=== PATIENT | female | born 1985 | race African-American/Black ===

== ENCOUNTER → 2021-02-09 11:25 | Outpatient (CLI) | payer OTHER, MEDICAID, SELFPAY ==
[2021-02-09 20:43] LABS: COVID19 - ORCAS (NP or Nasal) POSITIVE (Negative)
== END ==
PROVIDERS: PCP Family Medicine; Visit Provider Family Medicine
DX: U07.1 COVID-19 (principal)
CPT/HCPCS: U0003

== ENCOUNTER 2022-01-29 18:50 | Emergency (ER) | payer OTHER, MEDICAID, SELFPAY ==
[2022-01-29 19:00] VITALS: BP 177/102; PULSE 81; RESP 18; TEMP 36.7; O2SAT 99; BMI 31.8
--- NOTE | 2022-01-29 19:19 | DI.US.S_ITS ---
PROCEDURE: US PELVIC COMPLETE INDICATIONS: Dysfunctional uterine bleeding TECHNIQUE: Real-time scanning was performed of the pelvic organs, with image documentation. Additional endovaginal scanning was necessary due to incomplete visualization of the adnexal and endometrial structures by transabdominal scanning. COMPARISON: None. FINDINGS: Uterus: Uterus is anteverted and measures 10.8 x 6.4 x 8.1 cm. The endometrium is thickened, measuring up to 2.3 cm and slightly heterogeneous in appearance. No internal vascularity within the endometrium on color Doppler interrogation. Ovaries: The right ovary measures 3.4 x 2.2 x 2.2 cm. The left ovary measures 3.7 x 3.0 x 4.0 cm. The ovaries have a normal sonographic appearance. Less than 12 follicles can be seen in each ovary. No adnexal masses identified. There is a simple anechoic cyst within the left ovary measuring up to 3.3 x 2.5 x 3.0 cm. There is a prominent anechoic follicle within the right ovary measuring up to 1.4 cm. Other: No pathologic free abdominal or pelvic fluid. IMPRESSION: 1. Thickening of the endometrium with mild heterogeneity. No discrete endometrial mass or increased vascularity on color Doppler interrogation. The findings are nonspecific and may reflect endometrial hyperplasia. However, an underlying mass cannot be excluded. Recommend a repeat study in 6 weeks or further evaluation with a pelvic MRI. We strive to produce accurate, complete, and clear reports of imaging services. To assist us in improving patient care, this report was composed using standard report templates and voice recognition software. Therefore, it may contain abnormal punctuation, insertions and/or omissions. Occasional wrong-word or sound-alike substitutions may occur. Though we review the report and make efforts to correct it, we do recommend that the report be read carefully in proper context to recognize any text inaccuracies. Dictated by: Dylon Rogers M.D. on 01/29/2022 at 21:48 Approved by: Dylon Rogers M.D. on 01/29/2022 at 21:53
--- NOTE | 2022-01-29 19:25 | ED.ABDPAIN ---
HPI - Abdominal Pain General Chief Complaint: Vaginal Bleeding Stated Complaint: vag bleeding for 3 weeks with clots Time Seen by Provider: 01/29/22 19:07 Source: patient Mode of arrival: Ambulatory History of Present Illness HPI narrative: The patient complains of vaginal bleeding for about 3 weeks. Bleeding is rather persistent. She has no pain. She has no headache, no weakness and no dizziness. She has diagnosed with a fibroid about 3 years ago. She has shortness full cycles. She now feels like she is on a constant menstrual cycle. She can occasionally produce a large clot by pressing on her suprapubic area. She is not having abdominal pain. She denies dysuria or hematuria. She has no nausea, vomiting diarrhea. She has no fever or chills. She has no bleeding disorder. Review of Systems Constitutional Constitutional: Denies chills, Denies fatigue, Denies fever(s) and Denies weakness ENT Ears, Nose, Mouth, and Throat: Denies vertigo and Denies dizziness Comments: No ENT complaints. Cardiovascular Cardiovascular: Denies chest pain, Denies syncope, Denies lightheadedness and Denies dyspnea Respiratory Respiratory: Denies dyspnea Gastrointestinal Gastrointestinal: Denies abdominal pain, Denies loose stools, Denies nausea and Denies vomiting Genitourinary Genitourinary: Reports as per HPI, Denies dysuria, Denies dysmenorrhea and Denies dysuria Musculoskeletal Musculoskeletal: Denies back pain Integumentary/Breasts Skin/Breast: Denies new lesions and Denies rash Neurologic Neurologic: Denies confusion, Denies vertigo, Denies dizziness, Denies syncope and Denies weakness Psychiatric Psychiatric: Denies confusion Endocrine Endocrine: Denies fatigue Hematologic/Lymphatic On Anticoagulants: No Patient History Medical History (Updated 01/29/22 @ 21:42 by Douglas Leone MD) Fibroid uterus Surgical History (Updated 01/29/22 @ 19:30 by Douglas Leone MD) No significant past surgical history Social History Smoking Status: Never smoker Smoking Status: Never smoker alcohol intake frequency: 0-2 drinks per day Substance Use Type: does not use Exam Initial Vital Signs Initial Vital Signs: Vital Signs Temperature 98.1 F 01/29/22 19:00 Pulse Rate 81 01/29/22 19:00 Respiratory Rate 18 01/29/22 19:00 Blood Pressure 177/102 H 01/29/22 19:00 Pulse Oximetry 99 01/29/22 19:00 Const General: cooperative, healthy appearing and comfortable [facility] Head: normocephalic and atraumatic Eyes Conjunctivae: conjunctivae normal Sclera: sclerae normal Pupils: PERRL EOM: EOM intact bilaterally Resp Effort & Inspection: normal respiratory effort Auscultation: clear to auscultation bilaterally Cardio Rate: regular rate Rhythm: regular rhythm Heart Sounds: S1 normal, S2 normal, no click and no murmurs GI Palpation: soft, No guarding, No mass and No tender Auscultation: normal bowel sounds Back/Spine/Pelvis Back: No CVA tenderness Skin General: no rashes or lesions noted Neuro General: patient alert, patient awake, patient oriented x3 and no focal motor deficits Extrem General: normal to inspection, no pedal edema and no calf tenderness Psych Appearance: grossly normal Course Orders Ordered: ED Orders 01/29/22 19:19 US pelvic complete Stat 01/29/22 19:25 Test Urine Stat Urinalysis and Microscopic Stat 01/29/22 19:27 Urine Culture Stat 01/29/22 19:42 CBC Auto Diff [Complete Blood Count AUTO DIFF] Stat CMP [Comprehensive Metabolic Panel] Stat Prothrombin Time INR Stat Vital Signs Vital signs: Vital Signs - 8 hr 01/29/22 19:00 01/29/22 20:30 01/29/22 21:23 Temperature 98.1 F Pulse Rate 81 65 74 Respiratory Rate 18 Blood Pressure 177/102 H 152/86 H Pulse Oximetry 99 100 100 01/29/22 21:24 01/29/22 21:27 01/29/22 21:30 Temperature Pulse Rate 72 82 74 Respiratory Rate Blood Pressure 184/103 H 160/88 H Pulse Oximetry 100 100 100 MDM - Abdominal Pain Lab Data Result diagrams: 01/29/22 19:42 01/29/22 19:42 Labs: Lab Results 01/29/22 01/29/22 01/29/22 Range/Units 19:25 19:25 19:27 WBC (4.5-11.0) X10^3/uL RBC (4.0-5.2) X10^6/uL Hgb (12.0-16.0) g/dL Hct (36-46) % MCV (80-100) fL MCH (26-34) PG MCHC (30-36) % RDW (11.6-14.8) % Plt Count (150-400) X10^3/uL Neut % (Auto) (50-75) % Lymph % (Auto) (25-40) % Tucker % (Auto) (3-14) % Eos % (Auto) (2-4) % Baso % (Auto) (0-2) % Neut # (Auto) (2646-1131) /uL Lymph # (Auto) (2179-0832) /uL Tucker # (Auto) (0-900) /uL Eos # (Auto) (0-450) /uL Baso # (Auto) (0-100) /uL PT (10.1-12.7) SECONDS INR (0.9-1.3) Sodium (137-145) mmol/L Potassium (3.4-5.1) mmol/L Chloride (98-107) mmol/L Carbon Dioxide (22-32) mmol/L BUN (7-17) mg/dL Creatinine (0.52-1.04) mg/dL Estimated GFR (>60) mL/min BUN/Creatinine Ratio (6-22) Glucose (70-100) mg/dL Calcium (8.4-10.2) mg/dL Total Bilirubin (0.2-1.3) mg/dL AST (14-36) IU/L ALT (<35) IU/L Alkaline Phosphatase (38-126) U/L Total Protein (6.3-8.2) g/dL Albumin (3.5-5.0) g/dL Globulin (1.7-4.1) g/dL Albumin/Globulin Ratio (1.0-2.8) Urine Color Yellow Urine Appearance Clear Urine pH 5.5 (4.5-8.0) Ur Specific [place] 1.015 (1.000-1.035) Urine Protein 2+ H (Negative) Urine Glucose (UA) Negative (Negative) g/dL Urine Ketones Negative (NEGATIVE) Urine Occult Blood 3+ H (Negative) Urine Nitrate Negative (Negative) Urine Bilirubin Negative (NEGATIVE) Urine Urobilinogen 0.2 (0.2) E.U./dL Ur Leukocyte Esterase Negative (NEGATIVE) Urine RBC >100/hpf H Cancelled (0-5/HPF) Urine WBC None seen Cancelled (0-5/HPF) Ur Squamous Epith Cells None seen Cancelled (0-5/HPF) Ur Transition Epith Cell Cancelled Ur Renal Epithelial Cell Cancelled Calcium Oxalate Crystal Cancelled Uric Acid Crystals Cancelled Triple Phos Crystals Cancelled Other Crystals Cancelled Amorphous Sediment Cancelled Urine Bacteria None seen Cancelled (None) Hyaline Casts Cancelled Granular Casts Cancelled RBC Casts Cancelled WBC Casts Cancelled Other Casts Cancelled Urine Mucus Cancelled Urine Trichomonas Cancelled Urine Yeast Cancelled Urine Sperm Cancelled Ur Culture Indicated? Cult not indicated Cancelled Micro UA Comment Cancelled Urine Test Negative (Negative) 01/29/22 01/29/22 01/29/22 Range/Units 19:42 19:42 19:42 WBC 9.0 (4.5-11.0) X10^3/uL RBC 4.53 (4.0-5.2) X10^6/uL Hgb 11.3 L (12.0-16.0) g/dL Hct 34.8 L (36-46) % MCV 76.9 L (80-100) fL MCH 24.9 L (26-34) PG MCHC 32.4 (30-36) % RDW 16.3 H (11.6-14.8) % Plt Count 221 (150-400) X10^3/uL Neut % (Auto) 57.6 (50-75) % Lymph % (Auto) 32.2 (25-40) % Tucker % (Auto) 8.0 (3-14) % Eos % (Auto) 1.8 L (2-4) % Baso % (Auto) 0.4 (0-2) % Neut # (Auto) 5200 (4913-4045) /uL Lymph # (Auto) 2900 (0040-6906) /uL Tucker # (Auto) 700 (0-900) /uL Eos # (Auto) 200 (0-450) /uL Baso # (Auto) 0 (0-100) /uL PT 12.6 (10.1-12.7) SECONDS INR 1.1 (0.9-1.3) Sodium 137 (137-145) mmol/L Potassium 3.4 (3.4-5.1) mmol/L Chloride 103 (98-107) mmol/L Carbon Dioxide 31 (22-32) mmol/L BUN 5 L (7-17) mg/dL Creatinine 0.57 (0.52-1.04) mg/dL Estimated GFR > 60 (>60) mL/min BUN/Creatinine Ratio 8.8 (6-22) Glucose 86 (70-100) mg/dL Calcium 8.7 (8.4-10.2) mg/dL Total Bilirubin 0.2 (0.2-1.3) mg/dL AST 27 (14-36) IU/L ALT 21 (<35) IU/L Alkaline Phosphatase 70 (38-126) U/L Total Protein 7.9 (6.3-8.2) g/dL Albumin 4.3 (3.5-5.0) g/dL Globulin 3.6 (1.7-4.1) g/dL Albumin/Globulin Ratio 1.2 (1.0-2.8) Urine Color Urine Appearance Urine pH (4.5-8.0) Ur Specific [place] (1.000-1.035) Urine Protein (Negative) Urine Glucose (UA) (Negative) g/dL Urine Ketones (NEGATIVE) Urine Occult Blood (Negative) Urine Nitrate (Negative) Urine Bilirubin (NEGATIVE) Urine Urobilinogen (0.2) E.U./dL Ur Leukocyte Esterase (NEGATIVE) Urine RBC (0-5/HPF) Urine WBC (0-5/HPF) Ur Squamous Epith Cells (0-5/HPF) Ur Transition Epith Cell Ur Renal Epithelial Cell Calcium Oxalate Crystal Uric Acid Crystals Triple Phos Crystals Other Crystals Amorphous Sediment Urine Bacteria (None) Hyaline Casts Granular Casts RBC Casts WBC Casts Other Casts Urine Mucus Urine Trichomonas Urine Yeast Urine Sperm Ur Culture Indicated? Micro UA Comment Urine Test (Negative) Point of care testing: Point of Care Testing Test Results Negative Urine Dip Bedside Urine Glucose Negative Bedside Urine Bilirubin - Negative Bedside Urine Ketone - Negative Urine Specific [place] 1.025 Bedside Urine Occult Blood ++ Bedside Urine pH 6.0 Bedside Urine Protein + 30 Bedside Urine Urobilinogen - Negative Bedside Urine Nitrite - Negative Bedside Urine Leukocytes + 70 Esterase Imaging Data Pelvic ultrasound:: Radiologist's Impression: ?Thickening of the endometrium with mild heterogeneity.? No discrete endometrial mass or increased vascularity on color Doppler interrogation.? The findings are nonspecific and may reflect endometrial hyperplasia.? However, an underlying mass cannot be excluded. Discharge Plan Departure Patient Disposition: Home Clinical Impression: DUB (dysfunctional uterine bleeding) Instructions: DI for Menorrhagia Activity Restrictions/Additional Instructions: There is an abnormal thickening to the lining of your uterus, this is the reason your bleeding so much. I have discussed the case with REYMUNDO De Santiago with the local OB department. They will call you tomorrow to arrange follow-up. Return here as needed. Referrals: Aurora De Santiago CNM [[employer]] -
[2022-01-29 19:58] LABS: Appearance Urine UA CLEAR; Bilirubin Urine UA NEGATIVE (NEGATIVE); Color Urine UA YELLOW; Glucose Urine UA NEGATIVE (Negative); Ketones Urine UA NEGATIVE (NEGATIVE); Leukocyte Esterase Urine UA NEGATIVE (NEGATIVE); Nitrite Urine UA NEGATIVE (Negative); Occult Blood Urine UA 3+ (Negative); Protein Urine UA 2+ (Negative); Specific Gravity Urine UA 1.015 (1.000-1.035); Urobilinogen Urine UA 0.2 E.U./dL (0.2)
[2022-01-29 20:02] LABS: Add Manual Diff / Slide Review NO; Basophils Absolute Auto 0 /uL (0-100); Basophils Percent Auto 0.4 % (0-2); Eosinophils Absolute Auto 200 /uL (0-450); Eosinophils Percent Auto 1.8 % (2-4); Hematocrit 34.8 % (36-46); Hemoglobin 11.3 g/dL (12.0-16.0); Lymphocytes Absolute Auto 2900 /uL (1100-4500); Lymphocytes Percent Auto 32.2 % (25-40); Mean Corpuscular HGB Conc 32.4 % (30-36); Mean Corpuscular Hemoglobin 24.9 PG (26-34); Mean Corpuscular Volume 76.9 fL (80-100); Monocytes Absolute Auto 700 /uL (0-900); Neutrophils Absolute Auto 5200 /uL (1500-7000); Neutrophils Percent Auto 57.6 % (50-75); Platelet Count 221 X10^3/uL (150-400); Red Blood Cell Count 4.53 X10^6/uL (4.0-5.2); Red Cell Distribution Width 16.3 % (11.6-14.8)
[2022-01-29 20:02] LABS: Pregnancy Test Urine Negative (Negative); pH Urine UA 5.5 (4.5-8.0)
[2022-01-29 20:03] LABS: Bacteria Urine None Seen; Culture Indicated Urine Cult Not Indicated; RBC Urine >100/HPF (0-5/HPF); Squamous Epithelial Cell Urine None Seen (0-5/HPF); WBC Urine None Seen (0-5/HPF)
[2022-01-29 20:14] LABS: INR 1.1 (0.9-1.3); Prothrombin Time 12.6 SECONDS (10.1-12.7)
[2022-01-29 20:19] LABS: Alanine Aminotransferase 21 IU/L (<35); Albumin 4.3 g/dL (3.5-5.0); Albumin Globulin Ratio 1.2 (1.0-2.8); Alkaline Phosphatase 70 U/L (38-126); Aspartate Aminotransferase 27 IU/L (14-36); BUN Creatinine Ratio 8.8 (6-22); Bilirubin Total 0.2 mg/dL (0.2-1.3); Blood Urea Nitrogen 5 mg/dL (7-17); Calcium 8.7 mg/dL (8.4-10.2); Carbon Dioxide 31 mmol/L (22-32); Chloride 103 mmol/L (98-107); Estimated Glomerular Filt Rate > 60 mL/min (>60); Globulin 3.6 g/dL (1.7-4.1); Glucose 86 mg/dL (70-100); HEMOLYSIS < 15 (0-50); Potassium 3.4 mmol/L (3.4-5.1); Sodium 137 mmol/L (137-145); Total Protein 7.9 g/dL (6.3-8.2)
[2022-01-29 20:30] VITALS: BP 152/86; PULSE 65; O2SAT 100
[2022-01-29 21:23] VITALS: PULSE 74; O2SAT 100
[2022-01-29 21:24] VITALS: BP 184/103; PULSE 72; O2SAT 100
[2022-01-29 21:27] VITALS: BP 160/88; PULSE 82; O2SAT 100
[2022-01-29 21:30] VITALS: PULSE 74; O2SAT 100
== END 2022-01-29 22:04 | disposition home or self-care (01) ==
PROVIDERS: Emergency Provider Emergency Medicine
DX: N93.8 Other specified abnormal uterine and vaginal bleeding (principal)
CPT/HCPCS: 76830; 76856; 80053; 81001; 81003; 81025; 85025; 85610; 87086; 99282; 99283

== ENCOUNTER → 2024-07-16 11:07 | Outpatient (CLI) | payer OTHER, MEDICAID, SELFPAY ==
[2024-07-16 20:09] LABS: BUN Creatinine Ratio 15.4 (6-22); Blood Urea Nitrogen 10 mg/dL (7-17); Carbon Dioxide 27 mmol/L (22-32); Chloride 102 mmol/L (98-107); Estimated Glomerular Filt Rate > 60 mL/min (>60); Glucose 97 mg/dL (70-100); HEMOLYSIS < 15 (0-50); Potassium 3.8 mmol/L (3.4-5.1); Sodium 135 mmol/L (137-145)
[2024-07-16 20:41] LABS: TSH w/ Reflex to FT4 0.77 uIU/mL (0.47-4.68)
[2024-07-16 20:54] LABS: Add Manual Diff / Slide Review NO; Basophils Absolute Auto 0 /uL (0-100); Basophils Percent Auto 0.6 % (0-2); Eosinophils Absolute Auto 100 /uL (0-450); Eosinophils Percent Auto 1.4 % (2-4); Hematocrit 29.2 % (36-46); Hemoglobin 9.6 g/dL (12.0-16.0); Lymphocytes Absolute Auto 1600 /uL (1100-4500); Lymphocytes Percent Auto 30.1 % (25-40); Mean Corpuscular HGB Conc 32.7 % (30-36); Mean Corpuscular Hemoglobin 23.7 PG (26-34); Mean Corpuscular Volume 72.4 fL (80-100); Monocytes Absolute Auto 500 /uL (0-900); Monocytes Percent Auto 8.5 % (3-14); Neutrophils Absolute Auto 3200 /uL (1500-7000); Neutrophils Percent Auto 59.4 % (50-75); Platelet Count 264 X10^3/uL (150-400); Red Blood Cell Count 4.04 X10^6/uL (4.0-5.2); Red Cell Distribution Width 21.8 % (11.6-14.8); White Blood Cell Count 5.4 X10^3/uL (4.5-11.0)
[2024-07-16 22:40] LABS: Anisocytosis 1+; Target Cells 1+
[2024-07-19 20:07] LABS: Pregnancy Test Serum,Qual Negative (Negative)
== END ==
PROVIDERS: Referring Provider Family Medicine; Visit Provider Family Medicine
DX: D64.9 Anemia, unspecified (principal); R10.9 Unspecified abdominal pain; N92.0 Excessive and frequent menstruation with regular cycle; N92.1 Excessive and frequent menstruation with irregular cycle
CPT/HCPCS: 80048; 84443; 84703; 85018; 85025

== ENCOUNTER → 2024-07-22 13:17 | Outpatient (CLI) | payer OTHER, MEDICAID, SELFPAY ==
[2024-07-22 20:31] LABS: Prolactin 4.3 ng/mL (3.0-18.6)
[2024-07-22 20:45] LABS: TSH w/ Reflex to FT4 0.62 uIU/mL (0.47-4.68)
[2024-08-04 00:16] LABS: Anti Mullerian Hormone <0.015 ng/mL (.)
== END ==
PROVIDERS: Visit Provider Nurse Practitioner Adult Health
DX: N92.1 Excessive and frequent menstruation with irregular cycle (principal); D25.1 Intramural leiomyoma of uterus
CPT/HCPCS: 82397; 84146; 84443

== ENCOUNTER → 2024-08-13 15:55 | Outpatient (CLI) | payer OTHER, MEDICAID, SELFPAY ==
--- NOTE | 2024-08-13 15:57 | DI.MRI.S_ITS ---
PROCEDURE: MR PELVIS WO/W CON INDICATIONS: Uterine fibroids, possible adenomyosis, menorrhagia TECHNIQUE: Coronal HASTE, sagittal breath-hold T2 FSE; axial T1 FSE with and without fat saturation through the pelvis. Optional long- and short-axis uterine nonbreath-hold T2 FSE through the uterus. Sagittal or axial dynamic VIBE during administration of contrast. Post-contrast axial or coronal VIBE/2-D FLASH with fat saturation from the iliac crests to the symphysis. Optional diffusion weighted imaging and ADC may be performed. COMPARISON: None. FINDINGS: Image quality: Diagnostic Lower abdomen: No bowel obstruction or lower abdomen. No pathologic ascites. Bladder: Under distended, unremarkable Reproductive organs: Prominent endometrium about 1 cm. There are nabothian cysts in the cervix. Unremarkable endocervix. Borderline thickness of the junctional zone, measuring about 1-1.1 cm. Some areas of focal thickening is seen with subendometrial cystic changes, for example at the anterior mid region measuring up to 1.3 cm. The myometrium is enlarged and heterogeneous. No definite enhancing or focal endometrial mass. Suspected dominant follicle is seen within the right ovary measuring up to 2.2 cm. The left ovary appears unremarkable. There are small fibroids, for example subserosal fibroid posteriorly measures 6 mm on image 3/20 Rectum: Unremarkable Vessels and lymph nodes: No aneurysmal vessel identified. No pathologic lymph nodes by size criteria. Pelvic wall: Unremarkable Bones: No suspicious osseous enhancement. IMPRESSION: Enlarged uterus with heterogeneous appearance of the myometrium. Borderline thickening of the junctional zone is seen with subendometrial cystic changes, suggestive of adenomyosis. A few tiny fibroids are present. Endometrium measures 1 cm, prominent but within normal limits for age. Dominant follicle is seen within the right ovary. No significant adnexal abnormality. Dictated by: Randy Man M.D. on 08/13/2024 at 16:58 Approved by: Randy Man M.D. on 08/13/2024 at 17:04
== END ==
PROVIDERS: PCP Nurse Practitioner Adult Health; Referring Provider Nurse Practitioner Adult Health; Visit Provider Nurse Practitioner Adult Health
DX: N92.1 Excessive and frequent menstruation with irregular cycle (principal); D25.1 Intramural leiomyoma of uterus; N85.2 Hypertrophy of uterus
CPT/HCPCS: 72197; A9579

== ENCOUNTER → 2024-08-18 11:29 | Outpatient (CLI) | payer OTHER, MEDICAID, SELFPAY ==
[2024-08-18 19:40] LABS: Add Manual Diff / Slide Review NO; Basophils Absolute Auto 0 /uL (0-100); Basophils Percent Auto 0.4 % (0-2); Eosinophils Absolute Auto 100 /uL (0-450); Eosinophils Percent Auto 1.6 % (2-4); Hematocrit 32.4 % (36-46); Hemoglobin 10.1 g/dL (12.0-16.0); Lymphocytes Absolute Auto 1700 /uL (1100-4500); Lymphocytes Percent Auto 24.7 % (25-40); Mean Corpuscular HGB Conc 31.3 % (30-36); Mean Corpuscular Hemoglobin 22.3 PG (26-34); Mean Corpuscular Volume 71.2 fL (80-100); Monocytes Absolute Auto 600 /uL (0-900); Monocytes Percent Auto 9.2 % (3-14); Neutrophils Absolute Auto 4500 /uL (1500-7000); Neutrophils Percent Auto 64.1 % (50-75); Platelet Count 374 X10^3/uL (150-400); Red Blood Cell Count 4.55 X10^6/uL (4.0-5.2); Red Cell Distribution Width 20.4 % (11.6-14.8)
[2024-08-18 20:17] LABS: Follicle Stimulating Hormone 6.28 mIU/mL
[2024-08-18 20:33] LABS: Estradiol, Total 157.7 pg/mL
[2024-08-18 20:40] LABS: Ferritin 5 ng/mL (6-137)
[2024-08-24 11:09] LABS: Anti Mullerian Hormone <0.015 ng/mL (.)
== END ==
PROVIDERS: PCP Nurse Practitioner Adult Health; Visit Provider Nurse Practitioner Adult Health
DX: N93.9 Abnormal uterine and vaginal bleeding, unspecified (principal); D50.0 Iron deficiency anemia secondary to blood loss (chronic); E28.39 Other primary ovarian failure
CPT/HCPCS: 82397; 82670; 82728; 83001; 85025

== ENCOUNTER 2025-09-10 11:20 | Emergency (ER) | payer OTHER, SELFPAY ==
[2025-09-10] VITALS (14 sets, daily range): BP systolic 151–216; BP diastolic 84–120; PULSE 56–87; RESP 13–29; TEMP 36.9; O2SAT 93–99; BMI 32.5
--- NOTE | 2025-09-10 11:35 | DI.RAD.S_ITS ---
PROCEDURE: XR CHEST 1V INDICATIONS: Chest Pain TECHNIQUE: One view of the chest was acquired. COMPARISON: [facility], CT, CT HEAD/BRAIN WO CON, 09/10/2025, 11:53. FINDINGS: Surgical changes and devices: None. Lungs and pleura: An incomplete inspiratory result is noted, causing a crowded appearance to the lung markings. No focal infiltrates are seen. No pneumothorax or significant pleural effusions are seen. Mediastinum: Mediastinal contours appear normal. Heart size is mildly enlarged. Bones and chest wall: No suspicious bony lesions. Overlying soft tissues appear unremarkable. IMPRESSION: Mild cardiomegaly. Low lung volumes noted. Dictated by: Emir Ness M.D. on 09/10/2025 at 11:22 Approved by: Emir Ness M.D. on 09/10/2025 at 11:22
--- NOTE | 2025-09-10 11:39 | EKG_ITS ---
[address] [id number] [address], [place] [address] Test Date: 2025-09-10 Pat Name: Amaya Simpson Department: Room: Gender: Female Tufter Hand: HAYDE : 1985 Requested By: Order Number: [id number] Reading MD: Ezekiel Sue Measurements Intervals [place] Rate: 77 P: 78 VA: 182 QRS: -5 QRSD: 76 T: -12 QT: 406 QTc: 459 Interpretive Statements Normal sinus rhythm Possible Left atrial enlargement Electronically Signed On 09-12-2025 10:21:59 PST by Ezekiel Sue
[2025-09-10 11:42] LABS: Add Manual Diff / Slide Review NO; Hematocrit 33.1 % (36-46); Hemoglobin 10.6 g/dL (12.0-16.0); Lymphocytes Absolute Auto 2200 /uL (1100-4500); Mean Corpuscular HGB Conc 32.1 % (30-36); Mean Corpuscular Hemoglobin 22.2 PG (26-34); Mean Corpuscular Volume 69.2 fL (80-100); Platelet Count 321 X10^3/uL (150-400)
--- NOTE | 2025-09-10 11:45 | ED_ITS ---
HPI - General Adult General Chief complaint: Hypertension Stated complaint: high BP 202/110 headache, body ache blurred vision Time Seen by Provider: 09/10/25 11:23 Source: patient Mode of arrival: Ambulatory History of Present Illness HPI narrative: 40-year-old female history of hypertension presents with elevated blood pressure, blurred vision, headache, started this morning. Of note she was prescribed amlodipine in the past but she did not like the way it made her feel and did not take anymore. Patient states she has having epigastric jet lower chest pain radiating to the back but no urinary complaints vaginal discharge rectal bleeding constipation or diarrhea. Patient denies cough, shortness of breath, fever, chills, sore throat. Other than what is stated 14 point review system is negative Related Data Home Medications ?Medication ?Instructions ?Recorded ?Confirmed albuterol sulfate 90 mcg/actuation 2 puff inhalation Q 4H PRN 01/28/22 01/28/22 aerosol inhaler cetirizine 10 mg tablet 10 mg PO DAILY PRN 01/28/22 01/28/22 epinephrine 0.3 mg/0.3 mL 0.3 mg IM ONCE PRN 01/28/22 01/28/22 injection, auto-injector mometasone 50 mcg/actuation nasal 1 spray intranasal D AILY 01/28/22 01/28/22 spray ranitidine HCl 150 mg tablet 150 mg PO BID PRN 2 01/28/22 Previous Rx's ?Medication ?Instructions ?Recorded tramadol 50 mg tablet 50 mg PO TID PRN pain #20 ta bs 07/16/24 norethindrone acetate 5 mg tablet 5 mg PO BID 10 days #20 tabs 08/20/24 hydrochlorothiazide 12.5 mg tablet 12.5 mg PO DAILY #3 0 tabs 09/10/25 Allergies Allergy/AdvReac Type Severity Reaction Status Date / Time latex Allergy Unknown Swelling Verified 07/14/24 16:20 Review of Systems Review of Systems ROS Unobtainable: All systems reviewed & are unremarkable except as noted in HPI and below Patient History Medical History (Updated 09/10/25 @ 14:22 by Chalo Theodore, ) Premature ovarian failure Abnormal uterine bleeding (AUB) Fibroid uterus Upper respiratory tract infectious disease Fracture of tooth (traumatic), initial encounter for closed fracture (~06/29/20) Social History (System 02/04/22 @ 08:54 by Rupinder Ramírez) Smoking Status: Never smoker Smoking Status: Never smoker alcohol intake frequency: 0-2 drinks per day Exam Narrative Exam Narrative: GENERAL: [40] year old patient appears stated age. Well-developed patient, in mild distress. HEAD: Atraumatic. Normocephalic. EYES: Pupils equal round and reactive. Extraocular motions intact. No scleral icterus. No injection or drainage. ENT: Nose without bleeding, purulent drainage. Throat without erythema, tonsillar hypertrophy or exudate. Airway patent. NECK: Trachea midline. Non tender CARDIOVASCULAR: Regular rate and rhythm without murmurs, gallops, or rubs. RESPIRATORY: Clear to auscultation. Breath sounds equal bilaterally. No wheezes, rales, or rhonchi. GASTROINTESTINAL: Abdomen soft, non-tender, nondistended. EXTREMITIES: No edema or joint tenderness. BACK: Nontender without deformity or crepitance. No flank tenderness. NEURO: AOx3. SKIN: No rash or erythema of visible areas Initial Vital Signs Initial Vital Signs: Vital Signs Pulse Oximetry 95 09/10/25 11:28 Course Orders Ordered: ED Orders 09/10/25 11:30 Chlamydia Gonorrhea PCR -URINE Stat Complete Blood Count AUTO DIFF Stat Comprehensive Metabolic Panel Stat Lipase Stat Magnesium Stat NT-proBNP (BNP-Adult 18+) Stat PTT Partial Thromboplastin Dylan Stat Prothrombin Time INR Stat Troponin & CK Cardiac Panel Stat 09/10/25 11:35 XR chest 1V Stat EKG-12 Lead Stat 09/10/25 11:46 CT head/brain wo con Stat 09/10/25 13:40 Troponin I Stat Discontinued Medications Aspirin (Aspirin 81 Mg Chew Tab) 324 mg PO NOW ONE Stop: 09/10/25 11:36 Last Admin: 09/10/25 12:35 Dose: 324 mg Documented By: MEI Ketorolac Tromethamine (Ketorolac 30 Mg/Ml Vial) 15 mg IV NOW ONE Stop: 09/10/25 13:03 Last Admin: 09/10/25 13:09 Dose: 15 mg Documented By: KB Vital Signs Vital signs: Vital Signs - 8 hr 09/10/25 11:28 09/10/25 11:29 09/10/25 11:29 Temperature Pulse Rate 87 Respiratory Rate 18 Blood Pressure 216/120 H Pulse Oximetry 95 98 Oxygen Delivery Method 09/10/25 11:30 09/10/25 11:30 09/10/25 11:32 Temperature 98.5 F Pulse Rate 82 87 Respiratory Rate 23 14 Blood Pressure 203/110 H 203/110 H Pulse Oximetry 99 99 Oxygen Delivery Method Room Air 09/10/25 11:46 09/10/25 11:46 09/10/25 12:04 Temperature Pulse Rate 67 70 Respiratory Rate 22 Blood Pressure 181/100 H Pulse Oximetry 98 93 Oxygen Delivery Method 09/10/25 12:30 09/10/25 12:30 09/10/25 12:45 Temperature Pulse Rate 61 Respiratory Rate 19 Blood Pressure 152/88 H 171/96 H Pulse Oximetry 98 Oxygen Delivery Method 09/10/25 12:45 09/10/25 13:00 09/10/25 13:00 Temperature Pulse Rate 64 59 L Respiratory Rate 18 13 Blood Pressure 175/85 H Pulse Oximetry 97 97 Oxygen Delivery Method 09/10/25 13:15 09/10/25 13:15 Temperature Pulse Rate 64 Respiratory Rate 16 Blood Pressure 162/84 H Pulse Oximetry 97 Oxygen Delivery Method Medical Decision Making Lab Data 09/10/25 11:30 09/10/25 11:30 Labs: Lab Results 09/10/25 09/10/25 Range/Units 11:30 13:40 WBC 7.1 (4.5-11.0) X10^3/uL RBC 4.79 (4.0-5.2) X10^6/uL Hgb 10.6 L (12.0-16.0) g/dL Hct 33.1 L (36-46) % MCV 69.2 L (80-100) fL MCH 22.2 L (26-34) PG MCHC 32.1 (30-36) % RDW 19.7 H (11.6-14.8) % Plt Count 321 (150-400) X10^3/uL Neut % (Auto) 59.9 (50-75) % Lymph % (Auto) 30.5 (25-40) % [place] % (Auto) 7.6 (3-14) % Eos % (Auto) 1.7 L (2-4) % Baso % (Auto) 0.3 (0-2) % Neut # (Auto) 4300 (3062-7559) /uL Lymph # (Auto) 2200 (4473-9252) /uL [place] # (Auto) 500 (0-900) /uL Eos # (Auto) 100 (0-450) /uL Baso # (Auto) 0 (0-100) /uL RBC Morphology See below Anisocytosis 2+ H Microcytosis 1+ H PT 11.8 (9.4-12.5) SECONDS INR 1.0 (0.9-1.3) APTT 33 (25.1-36.5) SECONDS Sodium 138 (137-145) mmol/L Potassium 3.4 (3.4-5.1) mmol/L Chloride 106 (98-107) mmol/L Carbon Dioxide 25 (22-32) mmol/L BUN 8 (7-17) mg/dL Creatinine 0.67 (0.52-1.04) mg/dL Estimated GFR > 60 (>60) mL/min BUN/Creatinine Ratio 11.9 (6-22) Glucose 104 H (70-99) mg/dL Calcium 8.6 (8.4-10.2) mg/dL Magnesium 1.8 (1.6-2.3) mg/dL Total Bilirubin 0.3 (0.2-1.3) mg/dL AST 25 (14-36) IU/L ALT 17 (<35) IU/L Alkaline Phosphatase 74 (38-126) U/L Total Creatine Kinase 106 (30-135) U/L Troponin I < 0.012 < 0.012 (0.01-0.034) ng/mL NT-Pro-B Natriuret Pep 22 (<125) pg/mL Total Protein 8.3 H (6.3-8.2) g/dL Albumin 4.5 (3.5-5.0) g/dL Globulin 3.8 (1.7-4.1) g/dL Albumin/Globulin Ratio 1.2 (1.0-2.8) Lipase 67 (23-300) U/L Ur Chlamydia DNA (PCR) Not detected N gonorrhoeae DNA (PCR) Not detected Point of Care Testing Test Results Negative Urine Dip Bedside Urine Glucose Negative Bedside Urine Bilirubin - Negative Bedside Urine Ketone - Negative Urine Specific [place] 1.020 Bedside Urine Occult Blood - Negative Bedside Urine pH 6.0 Bedside Urine Protein - Negative Bedside Urine Urobilinogen - Negative Bedside Urine Nitrite - Negative Bedside Urine Leukocytes - Negative Esterase Point of care testing: Point of Care Testing Test Results Negative Urine Dip Bedside Urine Glucose Negative Bedside Urine Bilirubin - Negative Bedside Urine Ketone - Negative Urine Specific [place] 1.020 Bedside Urine Occult Blood - Negative Bedside Urine pH 6.0 Bedside Urine Protein - Negative Bedside Urine Urobilinogen - Negative Bedside Urine Nitrite - Negative Bedside Urine Leukocytes - Negative Esterase Imaging Data CT scan - head: Radiologist's Impression: [address] [address] [address] Scan Report Signed Patient: Amaya Simpson MR#: [id number] : 1985 Acct:[id number] Age/Sex: 40 / F Date of Service: 09/10/25 Loc: ED Accession Number: [id number] Procedure: CT head/brain wo con Ordering Provider: Chalo Theodore D.O. PROCEDURE: CT HEAD/BRAIN WO CON INDICATIONS: elevated bp, blurred vision headache TECHNIQUE: Noncontrast 4.5 mm thick angled axial sections acquired from the foramen magnum to the vertex, with coronal and sagittal reformats. For radiation dose reduction, the following was used: automated exposure control, adjustment of mA and/or kV according to patient size. COMPARISON: [facility], , XR CHEST 1V, 09/10/2025, 11:39. FINDINGS: Image quality: Diagnostic. CSF spaces: Basal cisterns are patent. No extra-axial fluid collections. Ventricles are normal in size and shape. Brain: No midline shift. No intracranial mass effect or hemorrhage. [place]- white matter interface is normal. Skull and face: Calvarium and visualized facial bones are intact, without suspicious lesions. Sinuses: Visualized sinuses and mastoids are clear. IMPRESSION: No imaging explanation is found for this patient's presenting symptoms. To the limits of this noncontrast study, no findings of intracranial masses or mass effect can be seen. Chest x-ray: Radiologist's Impression: [address] [address] XRay Report Signed Patient: Amaya Simpson MR#: [id number] : 1985 Acct:[id number] Age/Sex: 40 / F Date of Service: 09/10/25 Loc: ED Accession Number: [id number] Procedure: XR chest 1V Ordering Provider: Chalo Theodore D.O. PROCEDURE: XR CHEST 1V INDICATIONS: Chest Pain TECHNIQUE: One view of the chest was acquired. COMPARISON: [facility], CT, CT HEAD/BRAIN WO CON, 09/10/2025, 11:53. FINDINGS: Surgical changes and devices: None. Lungs and pleura: An incomplete inspiratory result is noted, causing a crowded appearance to the lung markings. No focal infiltrates are seen. No pneumothorax or significant pleural effusions are seen. Mediastinum: Mediastinal contours appear normal. Heart size is mildly enlarged. Bones and chest wall: No suspicious bony lesions. Overlying soft tissues appear unremarkable. IMPRESSION: Mild cardiomegaly. Low lung volumes noted. ECG Data Interpretation: NSR HR 77 [place] 182 QRS [address]-t wave change Unchange from 06/24/[address] [facility] Narrative Medical decision making narrative: All lab work, vital signs, nurse triage note, medication list, previous ER visits, and all imaging studies reviewed. 1st set troponin normal WBC 7 point globin 10 when platelet 320 INR 1.0 sodium 138 potassium 3.4 or 106 CO2 25 BUN 8 creatinine 0.67 glucose 104 LFTs normal BNP 22. CT head showed no acute process. Chest x-ray showed mild cardiomegaly. Urine shows no acute process and negative for and is negative for gonorrhea and chlamydia. Differential diagnosis hypertensive emergency, urgency, CVA aneurysm hemorrhage. DC home on hydrochlorothiazide Discharge Plan Departure Patient Disposition: Home Clinical Impression: Hypertensive urgency Instructions: DI for High Blood Pressure Activity Restrictions/Additional Instructions: Return with new or worsening symptoms. Take medicine as directed. Follow up with pcp 1-2 weeks for recheck Prescriptions: New hydrochlorothiazide 12.5 mg tablet 12.5 mg PO DAILY Qty: 30 0RF No Action tramadol 50 mg tablet 50 mg PO TID PRN (Reason: pain) Qty: 20 0RF norethindrone acetate 5 mg tablet 5 mg PO BID 10 Days Qty: 20 3RF albuterol sulfate 90 mcg/actuation HFA aerosol inhaler 2 puff inhalation Q4H PRN Rx Instructions: Inhale 2 puffs by mouth every 4 hours as needed for shortness of breath/wheezing. 2/REFILLSKevin Gallegos MD 01/05/2019 cetirizine 10 mg tablet 10 mg PO DAILY PRN ranitidine HCl 150 mg tablet 150 mg PO BID PRN mometasone 50 mcg/actuation spray,non-aerosol 1 spray intranasal DAILY Rx Instructions: administer into each nostril epinephrine 0.3 mg/0.3 mL auto-injector 0.3 mg IM ONCE PRN Rx Instructions: Inject 0.3 mL (0.3 mg) intramuscularly one time as needed for anaphylaxis. Inject into the thigh as instructed per patient package insert. 1/REFILL Dima Mcguire MD 12/16/2016 as a single dose; may repeat once Referrals: Carol Wagner ARNP [Primary Care Provider, Medical] Stand Alone Forms: Patient Portal/API
[2025-09-10 11:52] LABS: INR 1.0 (0.9-1.3); Prothrombin Time 11.8 SECONDS (9.4-12.5)
[2025-09-10 11:54] LABS: PTT Partial Thromboplastin Tim 33 SECONDS (25.1-36.5)
[2025-09-10 11:56] LABS: Alanine Aminotransferase 17 IU/L (<35); Albumin 4.5 g/dL (3.5-5.0); Albumin Globulin Ratio 1.2 (1.0-2.8); Alkaline Phosphatase 74 U/L (38-126); Blood Urea Nitrogen 8 mg/dL (7-17); Calcium 8.6 mg/dL (8.4-10.2); Carbon Dioxide 25 mmol/L (22-32); Chloride 106 mmol/L (98-107); Creatine Kinase 106 U/L (30-135); Estimated Glomerular Filt Rate > 60 mL/min (>60); Globulin 3.8 g/dL (1.7-4.1); Glucose 104 mg/dL (70-99); HEMOLYSIS < 15 (0-50); Lipase 67 U/L (23-300); Magnesium 1.8 mg/dL (1.6-2.3); Potassium 3.4 mmol/L (3.4-5.1); Sodium 138 mmol/L (137-145); Total Protein 8.3 g/dL (6.3-8.2)
[2025-09-10 12:08] LABS: NT-proBNP (BNP-Adult 18+) 22 pg/mL (<125); Troponin I < 0.012 ng/mL (0.01-0.034)
[2025-09-10 12:23] LABS: Anisocytosis 2+
[2025-09-10 12:24] LABS: Microcytosis 1+
[2025-09-10] MEDS: ASPIRIN 81 MG CHEW TAB 324 MG PO (12:35)
[2025-09-10] MEDS: KETOROLAC 30 MG/ML VIAL 15 MG IV (13:09)
[2025-09-10 13:28] LABS: Urine N gonorrhoeae NOT DETECTED
[2025-09-10 13:34] LABS: Urine Chlamydia NOT DETECTED
[2025-09-10 14:11] LABS: Troponin I < 0.012 ng/mL (0.01-0.034)
== END 2025-09-10 14:32 | disposition home or self-care (01) ==
PROVIDERS: Emergency Provider Family Medicine; PCP Nurse Practitioner Adult Health
DX: I16.0 Hypertensive urgency (principal); R51.9 Headache, unspecified; M79.10 Myalgia, unspecified site; H53.8 Other visual disturbances
CPT/HCPCS: 36415; 70450; 71045; 80053; 81003; 81025; 82550; 83690; 83735; 83880; 84484; 85025; 85610; 85730; 87491; 87591; 93005; 96374; 99284; J1885

== ENCOUNTER → 2025-09-14 09:40 | Outpatient (CLI) | payer OTHER, SELFPAY ==
--- NOTE | 2025-09-14 09:42 | DI.US.S_ITS ---
PROCEDURE: US PELVIC COMPLETE INDICATIONS: Metrorrhagia; menometrorrhagia TECHNIQUE: Real-time scanning was performed of the pelvic organs, with image documentation. Additional endovaginal scanning was necessary due to incomplete visualization of the adnexal and endometrial structures by transabdominal scanning. COMPARISON: [facility], US, US PELVIC COMPLETE, 01/29/2022, 20:34. FINDINGS: Uterus: Uterus is anteverted and normal in size at 9.4 x 6.0 x 8.0 cm. The myometrium is heterogeneous. The endometrium measures 4.7 mm combined thickness. Endometrium is ill-defined. Myometrial cyst anteriorly measuring 7 mm. Right anterior intramural fibroid measuring 1.0 x 0.4 x 0.8 cm. Ovaries: The right ovary measures 2.3 x 3.3 x 1.9 cm, with a calculated ovarian volume of 7.2 cc. The left ovary measures 1.4 x 4.7 x 2.4 cm, with a calculated ovarian volume of 8.6 cc. The ovaries have a normal sonographic appearance. Less than 12 follicles can be seen in each ovary. No adnexal masses are seen. Other: No pathologic free abdominal or pelvic fluid. IMPRESSION: Endometrium is ill-defined but appears normal in thickness measuring approximately 5 mm. Intramural fibroid measuring 1.0 cm. Ovaries are normal in appearance. We strive to produce accurate, complete, and clear reports of imaging services. To assist us in improving patient care, this report was composed using standard report templates and voice recognition software. Therefore, it may contain abnormal punctuation, insertions and/or omissions. Occasional wrong-word or sound-alike substitutions may occur. Though we review the report and make efforts to correct it, we do recommend that the report be read carefully in proper context to recognize any text inaccuracies. Dictated by: Sean Rizvi M.D. on 09/14/2025 at 10:57 Approved by: Sean Rizvi M.D. on 09/14/2025 at 11:00
== END ==
LOC: US 09:42
PROVIDERS: PCP Nurse Practitioner Adult Health; Referring Provider Family Medicine; Visit Provider Family Medicine
DX: N92.1 Excessive and frequent menstruation with irregular cycle (principal); N85.8 Other specified noninflammatory disorders of uterus; D25.1 Intramural leiomyoma of uterus
CPT/HCPCS: 76830; 76856